=== PATIENT | male | born 1965 | race Caucasian/White ===

== ENCOUNTER 2018-05-23 09:29 | Day surgery (SDC) | payer BC, SELFPAY ==
--- NOTE | 2018-05-22 23:48 | PCM.HP.BLA ---
History and Physical Date of Admission: 05/23/18 HISTORY OF PRESENT ILLNESS 53 year old man presents for evaluation of a melanoma left lateral lower leg near the lateral malleolus that was initially biopsied on 03/14/[address] Lora. Pathology showed melanoma in situ. Further surgery was done on 04/14/[address] Le with excision of the melanoma in situ. Pathology showed a focal invasive component of superficial spreading melanoma with a thickness of 0.2 mm. He was told additional surgery was necessary to minimize recurrence. He also has concerns about a pigmented lesion on his right upper lateral back that has increased in size over the last several months and has developed irregular borders and changes in pigmentation. He presents today for surgical options for treatment. PAST MEDICAL HISTORY Asthma. Diabetes mellitus type 2, noninsulin dependent. Dysmetabolic syndrome X. Hypercholesterolemia. Hyponatremia. Obesity. Hypertension. PAST SURGICAL HISTORY Recent biopsy of left lower lateral leg showing superficial spreading melanoma with a thickness of 0.2 mm. ALLERGIES influenza virus vacc trivalent, split [From Fluzone] MEDICATIONS albuterol 90 mcg/actuation aerosol inhaler mcg INHALATION .PRN 05/08/18 [History Confirmed 05/08/18] aspirin 81 mg tablet,delayed release 81 mg PO QDAY 05/08/18 [History Confirmed 05/08/18] cetirizine 10 mg tablet 10 mg PO QDAY 05/08/18 [History Confirmed 05/08/18] empagliflozin 10 mg tablet 10 mg PO QDAY 05/08/18 [History Confirmed 05/08/18] glipizide ER 10 mg tablet, extended release 24 hr 20 mg PO QDAY tab 05/08/18 [History Confirmed 05/08/18] lisinopril 10 mg tablet 10 mg PO QDAY 05/08/18 [History Confirmed 05/08/18] lovastatin 40 mg tablet 40 mg PO QHS tab 05/08/18 [History Confirmed 05/08/18] metformin ER 500 mg tablet,extended release 24 hr 1,000 mg PO QDAY tab 05/08/18 [History Confirmed 05/08/18] pseudoephedrine 60 mg tablet 60 mg PO BID tab 05/08/18 [History Confirmed 05/08/18] zafirlukast 20 mg tablet 20 mg PO .QID tab 05/08/18 [History Confirmed 05/08/18] FAMILY HISTORY Father - Diabetes. Negative for skin cancer. SOCIAL HISTORY Smoking Status: Never smoker alcohol intake: current substance use type: does not use REVIEW OF SYSTEMS General - Denies fever, fatigue, and weight loss. Eyes - Denies cataracts and glaucoma. ENT - Denies nasal congestion and sore throat. Endocrine - Denies excessive thirst and urination. Skin - Has recent diagnosis of superficial spreading melanoma left lateral lower leg with a thickness of 0.2 mm. He also has an enlarging pigmented lesion right upper lateral back. Musculoskeletal - Denies joint pain, joint stiffness, weakness of muscles and joints, back pain, and arthritis. Neuro - Denies headaches. Cardiovascular - Denies chest pain, fatigue, and shortness of breath with exertion. Psych - Denies anxiety and depression. Respiratory - Denies chronic cough and shortness of breath. Has some asthma. Gastrointestinal - Denies nausea, vomiting, diarrhea, and constipation. Hematologic - Denies abnormal bruising and bleeding. Genitourinary - Denies hematuria and urinary frequency. PHYSICAL EXAM General - Alert and Oriented HEENT - PERRL. EOMI. Throat is clear. No suspicious lesions noted. Neck - Supple and nontender. No cervical adenopathy. No suspicious lesions noted. Lungs - Clear to auscultation. Heart - Regular rate and rhythm. Abdomen - Soft and nondistended. No suspicious lesions noted. Extremities - FROM. No axillary adenopathy. No inguinal adenopathy. Radial pulses are palpable. Dorsalis pedis pulses are palpable. On the left lateral lower leg near the lateral malleolus is a vertical incision from previous excision of melanoma in situ. The incisional scar measures 6 cm. It is healing satisfactory at present. No ulceration. Healing incision is nontender. Neuro - CN II-XII grossly intact. Back - On the right upper lateral back is a pigmented lesion with changes in pigmentation at the edges. Has irregular borders. No ulceration. Lesion is nontender. Measures 6 mm. Psych - Normal mood and affect. ASSESSMENT 1. 6 cm superficial spreading melanoma scar left lateral lower leg near lateral malleolus, with a thickness of 0.2 mm. 2. 6 mm pigmented lesion right upper lateral back. PLAN Discussed the treatment options for melanoma. With a thickness of 0.2 mm it is considered a thin melanoma and requires a surgical margin of 1 cm. If the thickness of the melanoma was between 1 and 4 mm thick, it is considered an intermediate thickness melanoma. It requires a 2 cm margin down to the level of the muscular fascia. It is the intermediate thickness melanomas that require evaluation of the lymph nodes with a sentinel node biopsy. The sentinel node biopsy and possible lymph node resection would need to be done at a tertiary center. If the thickness of the melanoma is greater than 4 mm thick, it is considered a thick melanoma. Margin is 2-3 cm and the excision extends down to the level of the muscular fascia. After treatment, followup is every 3-6 months for a cancer skin check. He can coordinate with his PCP on a yearly basis for LFT's which include LDH and fractionated alkaline phosphatase and a yearly CXR. For this patient, the margin is 0.2 mm which makes it a thin melanoma, and I recommend wide excision of his superficial spreading melanoma left lateral lower leg near the lateral malleolus with a 1 cm margin down to the muscular fascia. Reconstruction will be with skin grafting. Will also excise the pigmented lesion right upper lateral back at the same time and send the lesion to Pathology for analysis to rule out carcinoma. If carcinoma is present, then further excision will be done with skin flap or possible skin graft reconstruction. Patient was informed of the risks and complications of the procedure including alternatives to surgery. These were discussed with the patient personally. Patient voices understanding and wishes to proceed. Some of the risks and complications were included in a form from the [employer]. Will schedule in the next 1-2 weeks. Surgery will be done under general anesthesia on an outpatient basis. Postop he will keep his left leg elevated when sitting to minimize swelling and maximize healing of the skin graft. Also ambulation is ok with a compression MARLIN wrap to minimize swelling. I don't want him standing which can increase the swelling and lead to healing problems with the skin graft. If some compromise of the skin graft develops because of its location on the lower extremities close to the ankle, can be evaluated at the [facility] for HBO treatments to help salvage the healing of the skin graft compromise.
[2018-05-23] VITALS (7 sets, daily range): BP systolic 127–140; BP diastolic 79–95; PULSE 70–87; RESP 16–18; TEMP 36.4–36.6; O2SAT 94–96; BMI 32.8
--- NOTE | 2018-05-23 | LES_PTH ---
PATIENT: MADELINE HERRERA [place] [facility] [place][id number] AGE/SX: 53/M ROOM: RE05/23/[address]: Dr. Zan Weller MD : [id number] BED: DIS: 05/23/2018 SPEC #: [id number] RECD: 05/23/18 14:21 STATUS: ARTIS JAY #: [id number] BRINDA: 05/23/18 00:[address]: Zan Weller DEPT: SURGICAL PATHOLOGY RECD BY: Alvaro Qureshi ENTERED: 05/23/18 14:22 SP TYPE: Lesion OTHR DR: Dr. Sawyer Lora MD Tissues: A - Skin of leg, NOS B - Skin of back, NOS Procedures: Surgery Specimen Level IV HEADER OPERATION: Wide excision melanoma, left lateral leg by ankle PRE-OP DIAGNOSIS: 6 cm superficial spreading melanoma scar left lateral lower leg near lateral malleolus; 6 mm pigmented lesion right upper lateral back TISSUE SUBMITTED: A ? Melanoma left lateral leg ? suture at 12 o?clock, B ? Pigmented lesion right upper lateral back ? suture at 12 o?clock MICROSCOPIC DIAGNOSIS A. Melanoma left lateral leg, wide excision: Negative for residual melanoma. Focal ulceration, acute and chronic inflammation, foreign body giant cell reaction and dermal fibrosis consistent with previous biopsy site. B. Pigmented lesion right upper lateral back, excisional biopsy: Consistent with lentigo. Negative for malignancy. JOVON:mamadou 05/24/18 COMMENT Case has been reviewed in consultation with Dr. Thomas who concurs with the above diagnosis. IDC:AM MICROSCOPIC DESCRIPTION Slides are reviewed. GROSS DESCRIPTION A - Received in fixative is one container labeled with the patient's name and designated left lateral leg, suture at 12 o'clock melanoma. The specimen consists of an ellipse of pink-martin skin measuring 6.5 x 1.6 cm and a depth of excision measuring 1.3 cm. A well-healed scar is present on the cutaneous surface measuring 4.4 cm in greatest dimension. One ellipse of the excision contains a suture and has been designated 12 o?clock. The 12 o?clock tip is inked in black ink. The 6 o?clock tip is inked in green ink. The 3 o?clock position is inked in blue ink and the 9 o?clock position is inked in orange ink. The deep surface is inked in red ink. Serial sections do not reveal mass lesions. The specimen is totally submitted in seven cassettes. B - Received in fixative is one container labeled with the patient's name and designated pigmented lesion right upper back, suture at 12 o'clock. The specimen consists of an ellipse of light martin excised skin with attached yellow fatty tissue measuring 2 x 0.5 cm and a depth of excision measuring 1 cm. The 12 o?clock tip is inked in black ink. The 6 o?clock tip is inked in green ink. The 3 o?clock position is inked in red ink and the 9 o?clock position is inked in orange ink. The cutaneous surface displays a flat, pigmented lesion measuring 0.3 cm in greatest dimension. The specimen is serially sectioned and totally submitted in one cassette. / AM:mamadou 05/23/18 TC:5 CPT: 69798 x2
[2018-05-23 10:36] LABS: Bedside Glucose 148 mg/dL (70-110)
[2018-05-23] MEDS: Cefazolin 2 GM in 0.9% Normal Saline 100 ML IV (11:28)
[2018-05-23] MEDS: Mupirocin Ointment 22gm Tube 1 APPLIC (12:15)
--- NOTE | 2018-05-23 13:07 | PCM.IMDPSTOP ---
Immediate Post-Op Note Date of Procedure: 05/23/18 Primary Surgeon/Physician: Zan Weller senior talent acquisition specialist: Gregg Mccarthy. Pre-Operative Diagnosis: 1. 6 cm superficial spreading melanoma scar left lateral lower leg near lateral malleolus, with a thickness of 0.2 mm. 2. 6 mm pigmented lesion right upper lateral back. Post-Operative Diagnosis: Same. Surgery/Procedure Performed:: 1. Wide excision 6 cm superficial spreading melanoma scar left lower lateral leg near lateral malleolus, (thickness of 0.2 mm), with STSG reconstruction from the left flank (31.5 cm2) and placement of OZZIE NPWT. 2. Excision 6 mm pigmented lesion right upper lateral back with 2.5 cm layered closure. Description of Surgical Findings:: 53 year old man presents for evaluation of a melanoma left lateral lower leg near the lateral malleolus that was initially biopsied on 03/14/[address] Lora. Pathology showed melanoma in situ. Further surgery was done on 04/14/[address] Le with excision of the melanoma in situ. Pathology showed a focal invasive component of superficial spreading melanoma with a thickness of 0.2 mm. He was told additional surgery was necessary to minimize recurrence. He also has concerns about a pigmented lesion on his right upper lateral back that has increased in size over the last several months and has developed irregular borders and changes in pigmentation. Today the patient underwent wide excision 6 cm superficial spreading melanoma scar left lower lateral leg near lateral malleolus, (thickness of 0.2 mm), with STSG reconstruction from the left flank (31.5 cm2) and placement of OZZIE NPWT and excision 6 mm pigmented lesion right upper lateral back with 2.5 cm layered closure. Size of skin graft left lower lateral leg - 9 x 3.5 cm. Estimated Blood Loss: 20 ml. Specimen's removed: 1. Superficial spreading melanoma scar (0.2 mm thick) left lower lateral leg to Pathology. 2. Pigmented lesion right upper lateral back to Pathology. Drains: None. Type of Anesthesia:: General - Admit VTE Documentation VTE Present on Admission: No VTE Mechan Device Prophylaxis: SCD's VTE Pharm Prophylaxis ordered?: No
--- NOTE | 2018-05-23 13:19 | PCM.DC ---
You will use the following diet at home:: Calorie/Carbohydrate Controlled (specify 1200, 1400, etc) Discharge Activity: May Not Drive, May Shower - in 2 days. Wear plastic bag over left leg when showering. May shower in (days): 2 - place plastic bag over left leg dressing when showering. May resume sexual activity in: No Restrictions Weight Bearing Status: Weight bearing as tolerated Keep extremity elevated above heart level: Left Leg Call your doctor if your incision/area has: Continuous Slow Oozing, Sudden Increased Bleeding, Increased Pain/ Swelling, Increased Redness, Foul Smelling Discharge, Swelling at the incision site Call your doctor if you observe: Fever of 101 or Higher, Coldness, Increased Pain, Shortness of breath, Chest pain, Calf discomfort, Uncontrolled pain Suture Line Care: - - antibiotic ointment to left flank and right back incisions daily after dressing removed in two days. Cleanse incision/area with: - - may get incisions (left flank and right back) wet in the shower in two days. place plastic bag over left leg dressing when showering. Allergies/Adverse Reactions: Allergies influenza virus vacc trivalent, split [From Fluzone] Allergy (Verified 05/22/18 11:57) ALLERGY FLUZONE *VACCINES* Medications to take at Discharge albuterol 90 mcg/actuation aerosol inhaler 90 mcg INHALATION .PRN 05/08/18 aspirin 81 mg tablet,delayed release 81 mg PO QDAY 05/08/18 cetirizine 10 mg tablet 10 mg PO QDAY 05/08/18 empagliflozin 10 mg tablet 10 mg PO QDAY 05/08/18 glipizide ER 10 mg tablet, extended release 24 hr 20 mg PO QDAY tab 05/08/18 lisinopril 10 mg tablet 10 mg PO QDAY 05/08/18 lovastatin 40 mg tablet 40 mg PO QHS tab 05/08/18 metformin ER 500 mg tablet,extended release 24 hr 1,000 mg PO QDAY tab 05/08/18 pseudoephedrine 60 mg tablet 60 mg PO BID tab 05/08/18 zafirlukast 20 mg tablet 20 mg PO .QID tab 05/08/18 Cefadroxil [Duricef] 500 mg PO BID #20 cap 05/23/18 Oxycodone HCl/Acetaminophen [Percocet 5/325] 1 - 2 tab PO 4X/DAY PRN PRN 4 Days #30 tab 05/23/18 The following prescriptions were given: Oxycodone HCl/Acetaminophen [Percocet 5/325] 1 - 2 tab PO 4X/DAY PRN PRN 4 Days #30 tab PRN Reason: Pain Cefadroxil [Duricef] 500 mg PO BID #20 cap Primary Care Physician: Sawyer Lora MD [Primary Care Provider] - Test Results: Test results from this visit will be discussed in further detail at your follow-up appointment, if applicable. Please Follow Up With: Zan Weller MD When: one week. call [phone] for appt. Proposed Discharge Date: 05/23/18
[2018-05-23 13:25] LABS: Bedside Glucose 106 mg/dL (70-110)
--- NOTE | 2018-05-23 13:25 | DCINST_ITS ---
You will use the following diet at home:: Calorie/Carbohydrate Controlled ( specify 1200, 1400, etc) Discharge Activity: May Not Drive, May Shower - in 2 days. Wear plastic bag over left leg when showering. May shower in (days): 2 - place plastic bag over left leg dressing when showering. May resume sexual activity in: No Restrictions Weight Bearing Status: Weight bearing as tolerated Keep extremity elevated above heart level: Left Leg Call your doctor if your incision/area has: Continuous Slow Oozing, Sudden Increased Bleeding, Increased Pain/ Swelling, Increased Redness, Foul Smelling Discharge, Swelling at the incision site Call your doctor if you observe: Fever of 101 or Higher, Coldness, Increased Pain, Shortness of breath, Chest pain, Calf discomfort, Uncontrolled pain Suture Line Care: - - antibiotic ointment to left flank and right back incisions daily after dressing removed in two days. Cleanse incision/area with: - - may get incisions (left flank and right back) wet in the shower in two days. place plastic bag over left leg dressing when showering. Allergies/Adverse Reactions: Allergies influenza virus vacc trivalent, split [From Fluzone] Allergy (Verified 05/22/18 11:57) ALLERGY FLUZONE *VACCINES* Medications to take at Discharge albuterol 90 mcg/actuation aerosol inhaler 90 mcg INHALATION .PRN 05/08/18 aspirin 81 mg tablet,delayed release 81 mg PO QDAY 05/08/18 cetirizine 10 mg tablet 10 mg PO QDAY 05/08/18 empagliflozin 10 mg tablet 10 mg PO QDAY 05/08/18 glipizide ER 10 mg tablet, extended release 24 hr 20 mg PO QDAY tab 05/08/18 lisinopril 10 mg tablet 10 mg PO QDAY 05/08/18 lovastatin 40 mg tablet 40 mg PO QHS tab 05/08/18 metformin ER 500 mg tablet,extended release 24 hr 1,000 mg PO QDAY tab pseudoephedrine 60 mg tablet 60 mg PO BID tab 05/08/18 zafirlukast 20 mg tablet 20 mg PO .QID tab 05/08/18 Cefadroxil [Duricef] 500 mg PO BID #20 cap 05/23/18 Oxycodone HCl/Acetaminophen [Percocet 5/325] 1 - 2 tab PO 4X/DAY PRN PRN 4 Days #30 tab 05/23/18 The following prescriptions were given: Oxycodone HCl/Acetaminophen [Percocet 5/325] 1 - 2 tab PO 4X/DAY PRN PRN 4 Days #30 tab PRN Reason: Pain Cefadroxil [Duricef] 500 mg PO BID #20 cap Primary Care Physician: Sawyer Lora MD [Primary Care Provider] - Test Results: Test results from this visit will be discussed in further detail at your follow- up appointment, if applicable. Please Follow Up With: Zan Weller MD When: one week. call [phone] for appt. Proposed Discharge Date: 05/23/18
--- NOTE | 2018-05-24 17:53 | OP.PCM_ITS ---
Report of Operation Date of Procedure: 05/23/18 Pre-Operative Diagnosis: 1. 6 cm superficial spreading melanoma scar left lateral lower leg near lateral malleolus, with a thickness of 0.2 mm. 2. 6 mm pigmented lesion right upper lateral back. Post-Operative Diagnosis: Same. Surgery/Procedure Performed:: 1. Wide excision 6 cm superficial spreading melanoma scar left lower lateral leg near lateral malleolus, (thickness of 0.2 mm), with STSG reconstruction from the left flank (31.5 cm2). 2. Excision 6 mm pigmented lesion right upper lateral back with 2.5 cm layered closure. Description of Surgical Findings:: 53 year old man presents for evaluation of a melanoma left lateral lower leg near the lateral malleolus that was initially biopsied on 03/14/[address] Lora. Pathology showed melanoma in situ. Further surgery was done on 04/14/[address] Le with excision of the melanoma in situ. Pathology showed a focal invasive component of superficial spreading melanoma with a thickness of 0.2 mm. He was told additional surgery was necessary to minimize recurrence. He also has concerns about a pigmented lesion on his right upper lateral back that has increased in size over the last several months and has developed irregular borders and changes in pigmentation. Patient was informed of the risks and complications of the procedure including alternatives to surgery. These were discussed with the patient personally. Patient voices understanding and wishes to proceed. Some of the risks and complications were included in a form from the [employer]. Size of skin graft left lower lateral leg - 9 x 3.5 cm. wellness program coordinator: Gregg Mccarthy. Type of Anesthesia:: General Specimen's removed: 1. Superficial spreading melanoma scar (0.2 mm thick) left lower lateral leg to Pathology. 2. Pigmented lesion right upper lateral back to Pathology. Drains: None. Estimated Blood Loss (mL): 20 ml. Description of Procedure: Patient was taken to OR in supine position and was placed under general anesthesia. He was then placed in the lateral position. His left flank, left leg, and right upper back were prepped and draped in the usual fashion. SCD's were placed for DVT prophylaxis. Using xylocaine with epinephrine, the lesions right upper lateral back and left lower lateral leg and donor area left flank were infiltrated. After waiting 5 minutes for the anesthetic to take effect, I excised the pigmented lesion right upper lateral back in an oblique elliptical excision down into the subcutaneous tissue. The lesion was excised with a 1 mm margin in all directions thus making it an 8 mm excision and a 2.5 cm layered closure. A suture was placed at 12 oclock position for pathology orientation and sent to Pathology for analysis to rule out carcinoma. Hemostasis was obtained with electrocautery. The wound was then closed in multiple layers with 4-0 Monocryl interrupted sutures for the deep dermis and subcutaneous tissue. The skin was approximated with 4-0 Prolene simple interrupted sutures. Bactroban ointment was applied to the incision followed by an Op-site dressing. A wide excision was done to the melanoma left lower lateral leg with a 1 cm margin in all directions because it was a thin melanoma with a thickness of 0.2 mm. The excision went down to the muscular fascia. A suture was placed at 12 oclock position and sent to Pathology for analysis to rule out carcinoma at the margins. The melanoma scar was excised with a 1 cm margin in all directions thus making it an 8 cm excision. The size of the wound for skin grafting was 9 x 3.5 cm or 31.5 cm2. I then made an elliptical excision in the left flank down into the subcutaneous tissue. The subcutaneous tissue was removed from the undersurface of the dermis and some of the deeper dermis thus making it a thick split thickness skin graft. The skin graft was placed on stretch and meshed with a 15 blade. The split thickness skin graft was then placed on the melanoma defect left lower lateral leg and secured to the skin edge with surgical clips. 3-0 Chromic sutures were placed for central quilting stabilization. Mepitel nonadherent dressing was placed on the graft followed by Bactroban ointment and placement of a OZZIE NPWT device. Good suction was noted with the device. A compression MARLIN wrap was then applied. For the donor site closure, some extra subcutaneous tissue was excised to aid in wound closure. Hemostasis was obtained with electrocautery. The underlying Ina's fascia was approximated with 3-0 Monocryl figure of eight interrupted sutures. The deep dermis and subcutaneous tissue was approximated with 3-0 Monocryl interrupted sutures. The skin was approximated with 3-0 V-lock unidirectional barbed running subcuticular suture. Histoacryl skin tissue adhesive was then applied to the incision. A Kerlix gauze dressing was applied. Patient tolerated the procedure well and was sent to PACU in satisfactory condition. He will be sent home on antibiotics and pain medication. He will keep his left leg elevated during the initial postop period. He will followup in the office in a week for a wound check and takedown of the skin graft dressing and for discussion of the pathology report and to remove some sutures. Grafts/Implants Used: None. - Complications None. - Admit VTE Documentation VTE Present on Admission: No VTE Mechan Device Prophylaxis: SCD's VTE Pharm Prophylaxis ordered?: No Code Visit Surgery Charges CPT - 73293 ICD-10 - C43.72 63469 C43.72 42711 D49.2, Z85.820 71616 D49.2, Z85.820
== END 2018-05-23 14:52 | disposition home or self-care (01) ==
LOC: SDC 09:31 → AC 09:33
PROVIDERS: Family Provider Orthopaedic Surgery; PCP Orthopaedic Surgery; Visit Provider Surgery
PROC: (CPT 11401; principal; 2018-05-23 11:05)
DX: C43.72 Malignant melanoma of left lower limb, including hip (principal); E11.9 Type 2 diabetes mellitus without complications; J45.909 Unspecified asthma, uncomplicated; E78.00 Pure hypercholesterolemia, unspecified; I10 Essential (primary) hypertension; D49.2 Neoplasm of unspecified behavior of bone, soft tissue, and skin; E66.9 Obesity, unspecified; Z68.32 Body mass index [BMI] 32.0-32.9, adult; Z71.3 Dietary counseling and surveillance; E88.81 Metabolic syndrome and other insulin resistance; Z79.899 Other long term (current) drug therapy; Z79.84 Long term (current) use of oral hypoglycemic drugs; Z79.82 Long term (current) use of aspirin
CPT/HCPCS: 00300; 11401; 11606; 12031; 15002; 15100; 82962; 88305; J7120; J2405

== ENCOUNTER → 2018-06-15 18:37 | Outpatient (CLI) | payer BC, SELFPAY | PROVIDERS: Family Provider Orthopaedic Surgery; PCP Family Medicine; Visit Provider Surgery | DX: T86.828 Other complications of skin graft (allograft) (autograft) (principal); C43.72 Malignant melanoma of left lower limb, including hip; Z85.820 Personal history of malignant melanoma of skin | CPT/HCPCS: 87070; 87075; 87076; 87077; 87186; 87205 ==

== ENCOUNTER 2019-06-12 06:54 | Day surgery (SDC) | payer BC, SELFPAY ==
[2019-05-31 13:37] VITALS: BMI 40.8
[2019-06-12] VITALS (7 sets, daily range): BP systolic 118–141; BP diastolic 69–89; PULSE 78–89; RESP 16–18; TEMP 36.1–36.3; O2SAT 95–98; BMI 35.0
--- NOTE | 2019-06-12 | IMM_PTH ---
PATIENT: MADELINE HERRERA LOC: [facility] [place] U#:[id number] AGE/SX: 54/M ROOM: RE06/12/[address]: Dr. Zan Weller MD : 1965 BED: DIS: 06/12/2019 SPEC #: [id number] RECD: 06/15/19 13:12 STATUS: DEJONAngela REYnes #: [id number] BRINDA: 06/12/19 00:[address]: Zan Weller DEPT: IMMUNOHISTOCHEMISTRY RECD BY: Karen Gracia ENTERED: 06/15/19 13:13 SP TYPE: IMMUNO OTHR DR: Dr. Sawyer Lora MD Tissues: A - Skin of abdomen, NOS B - Skin of abdomen, NOS Procedures: MELAN-A (initial) S-100 (add) PHYSICIAN & INSTITUTION [place] [address] SPECIMEN INFORMATION: Tissue Source: A - Pigmented lesion, right upper abdominal wall, medial, B - Pigmented lesion, left upper abdominal wall, lateral Clinical Info: Pigmented lesions of abdominal wall Specimen Number: [id number] A & B CPT code: 41262 x2, 21642 x2 METHODOLOGY: Deparaffinized sections of prefer/formalin-fixed tissue or PAP/DQ stained slides are incubated with monoclonal/polyclonal antibodies/oligonucleotide probes. Localization is made via biotin free immunoperoxidase method. Appropriate controls are performed and reacted as expected. Results on target cell population are indicated in the following table: RESULTS: ANTIBODY / CLONE RESULT Block A S-100 (4C4.9) positive Melan A (A103) positive Block B S-100 (4C4.9) negative Melan A (A103) negative These tests were developed and their performance characteristics determined by [facility]. They may not have been cleared or approved by the U.S. Food and Drug Administration. The FDA has determined that such clearance or approval is not necessary. INTERPRETATION: A. Pigmented lesion, right upper medial abdominal wall, biopsy: Consistent with intradermal nevus. B. Pigmented lesion, left upper lateral abdominal wall, biopsy: Consistent with intradermal nevus. AM:mamadou 06/15/19
--- NOTE | 2019-06-12 01:06 | HP.PCM_ITS ---
History and Physical Date of Admission: 06/12/19 HISTORY OF PRESENT ILLNESS 54 year old man presents for evaluation of TBSE. He had a superficial spreading melanoma (thickness 0.2 mm) left lateral lower leg near the lateral malleolus excised and skin grafted in 05/24. He has not had his skin checked since last July. His PCP had recently ordered a chest x-ray and LFT's because of his melanoma history that were ok. He has some concerns about pigmented lesions on his left upper abdominal wall, lateral, and right upper abdominal wall, medial, that have increased in size over the last several months and have developed changes in pigmentation and have developed irregular borders. He denies fever. He denies trauma. He denies recent infection. He denies bleeding. PAST MEDICAL HISTORY Asthma Diabetes mellitus type 2, noninsulin dependent Dysmetabolic syndrome X Hypercholesterolemia Hyponatremia Obesity Melanoma left lateral lower leg near lateral malleolus Hypertension PAST SURGICAL HISTORY melanoma surgery ALLERGIES influenza virus vacc trivalent MEDICATIONS aspirin cetirizine glipizide ER lisinopril lovastatin metformin ER pseudoephedrine zafirlukast Albuterol Inhaler [Ventolin Hfa (SP)] Empagliflozin [Jardiance] FAMILY HISTORY Father - Diabetes SOCIAL HISTORY Smoking Status: Never smoker alcohol intake: current substance use type: does not use REVIEW OF SYSTEMS General - Denies fever, fatigue, and weight loss. Eyes - Denies cataracts and glaucoma. ENT - Denies nasal congestion and sore throat. Endocrine - Denies excessive thirst and urination. Skin - Had superficial spreading melanoma (thickness of 0.2 mm) excised left lateral lower leg near the lateral malleolus in 05/24. Has enlarging pigmented lesions left upper abdominal wall, lateral, and right upper abdominal wall, medial. Musculoskeletal - Denies joint pain, joint stiffness, weakness of muscles and joints, back pain, and arthritis. Neuro - Denies headaches. Cardiovascular - Denies chest pain, fatigue, and shortness of breath with exertion. Psych - Denies anxiety and depression. Respiratory - Denies chronic cough and shortness of breath. Has some asthma. Gastrointestinal - Denies nausea, vomiting, diarrhea, and constipation. Hematologic - Denies abnormal bruising and bleeding. Genitourinary - Denies hematuria and urinary frequency. PHYSICAL EXAMINATION General - Alert and Oriented HEENT - PERRL. EOMI. Throat is clear. No suspicious lesions noted. Neck - Supple and nontender. No cervical adenopathy. No suspicious lesions noted. Lungs - Clear to auscultation. Heart - Regular rate and rhythm. Abdomen - Soft and nondistended. Has a 0.8 cm pigmented lesion left upper abdominal wall, lateral, and a 0.5 cm pigmented lesion right upper abdominal wall, medial, that have changes in pigmentation. Have irregular borders. Lesions are flat. No ulceration. Lesions are nontender. Extremities - FROM. No axillary adenopathy. No inguinal adenopathy. Radial pulses are palpable. Dorsalis pedis pulses are palpable. On the left lateral lower leg near the lateral malleolus is a healed skin graft after excision superficial spreading melanoma (thickness 0.2 mm). No other suspicious lesions noted. Neuro - CN II-XII grossly intact. Back - No suspicious lesions noted. Psych - Normal mood and affect. ASSESSMENT 1. 0.8 cm pigmented lesion left upper abdominal wall, lateral. 2. 0.5 cm pigmented lesion right upper abdominal wall, medial. 3. Personal history of melanoma. PLAN Recommend excision of these changing and enlarging pigmented lesions left upper abdominal wall, lateral, and right upper abdominal wall, medial. Should be able to initially close with a primary layered closure. Will send the lesions to Pathology for analysis to rule out carcinoma. If carcinoma is present then further excision would be necessary with probable skin flap or skin graft reconstruction. Surgery will be done on an outpatient basis under local anesthesia and IV sedation. Patient was informed of the risks and complications of the procedure including alternatives to surgery. These were discussed with the patient personally. Patient voices understanding and wishes to proceed. Some of the risks and complications were included in a form from the [place] [employer].
[2019-06-12 07:51] LABS: Bedside Glucose 174 mg/dL (70-110)
--- NOTE | 2019-06-12 08:35 | LES_PTH ---
PATIENT: MADELINE HERRERA LOC: [facility] [place] U#:[id number] AGE/SX: 54/M ROOM: RE06/12/[address]: Dr. Zan Weller MD : 1965 BED: DIS: 06/12/2019 SPEC #: [id number] RECD: 06/12/19 11:11 STATUS: ARTIS JAY #: [id number] BRINDA: 06/12/19 08:[address]: Zan Weller DEPT: SURGICAL PATHOLOGY RECD BY: Shashank Michaels ENTERED: 06/12/19 12:19 SP TYPE: Lesion OTHR DR: Dr. Sawyer Lora MD Tissues: A - Skin of abdomen, NOS B - Skin of abdomen, NOS Procedures: Surgery Specimen Level IV HEADER OPERATION: Excision pigmented lesions, left upper abdominal wall PRE-OP DIAGNOSIS: 0.8 cm pigmented lesion, left upper abdominal wall, lateral; 0.5 cm pigmented lesion, right upper abdominal wall, medial; history of melanoma TISSUE SUBMITTED: A - Pigmented lesion, right upper abdominal wall, medial, suture at 12 o'clock, B - Pigmented lesion, left upper abdominal wall, lateral, suture at 12 o'clock MICROSCOPIC DIAGNOSIS A. Skin lesion, right medial abdominal wall, biopsy: Consistent with intradermal nevus. See comment. B. Skin lesion left lateral abdominal wall, biopsy: Consistent with intradermal nevus. See comment. AM:mamadou 06/15/19 COMMENT A & B. Immunohistochemistry ([id number]) supports the above diagnosis. MICROSCOPIC DESCRIPTION Slides are reviewed. GROSS DESCRIPTION A - Received in fixative is one container labeled with the patient's name and designated pigmented lesion, right upper abdominal wall, medial, suture at 12 o'clock. The specimen consists of a piece of martin-white skin ellipse measuring 1 x 0.3 cm and up to 0.8 cm in thickness. There is a brown lesion on the surface measuring 0.2 cm in greatest dimension. The specimen is inked as follows: 12 o'clock - black and 6 o'clock - blue. The entire specimen is submitted in one cassette. It will be sectioned at the time of embedding. B - Received in fixative is one container labeled with the patient's name and designated pigmented lesion, left upper abdominal wall, lateral, suture at 12 o'clock. The specimen consists of a piece of martin-white skin ellipse measuring 1.5 x 0.5 cm and up to 0.6 cm in thickness. There is a martin-brown lesion on the surface measuring 0.4 cm in greatest dimension. The specimen is inked as follows: 12 o'clock - black and 6 o'clock - blue. The entire specimen is submitted in one cassette. It will be sectioned at the time of embedding. / SJ:rg 06/12/19 TC: 5 CPT: 41686 x2
[2019-06-12] MEDS: Cefazolin 2 GM in 0.9% Normal Saline 100 ML IV (08:45)
[2019-06-12] MEDS: Mupirocin Ointment 22gm Tube 1 APPLIC (09:24)
--- NOTE | 2019-06-12 09:31 | OP.PCM_ITS ---
Report of Operation Date of Procedure: 06/12/19 Pre-Operative Diagnosis: 1. 0.8 cm pigmented lesion left upper abdominal wall, lateral. 2. 0.5 cm pigmented lesion right upper abdominal wall, medial. 3. Personal history of melanoma. Post-Operative Diagnosis: Same. Surgery/Procedure Performed:: 1. Excision 0.8 cm pigmented lesion left upper abdominal wall, lateral, with 3 cm layered closure. 2. Excision 0.5 cm pigmented lesion right upper abdominal wall, medial, with 2 cm layered closure. Description of Surgical Findings:: 54 year old man presents for evaluation of TBSE. He had a superficial spreading melanoma (thickness 0.2 mm) left lateral lower leg near the lateral malleolus excised and skin grafted in 05/24. He has not had his skin checked since last July. His PCP had recently ordered a chest x-ray and LFT's because of his melanoma history that were ok. He has some concerns about pigmented lesions on his left upper abdominal wall, lateral, and right upper abdominal wall, medial, that have increased in size over the last several months and have developed changes in pigmentation and have developed irregular borders. He denies fever. He denies trauma. He denies recent infection. He denies bleeding. Patient was informed of the risks and complications of the procedure including alternatives to surgery. These were discussed with the patient personally. Patient voices understanding and wishes to proceed. Some of the risks and complications were included in a form from the [employer] [place] [employer]. 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 Specimen's removed: 1. Pigmented lesion left upper abdominal wall, lateral, to Pathology. 2. Pigmented lesion right upper abdominal wall, medial, to Pathology. Drains: None. Estimated Blood Loss (mL): 10 ml. Description of Procedure: Patient was taken to OR in supine position and was given IV sedation. The abdominal wall was prepped and draped in the usual fashion. SCD's were placed for DVT prophylaxis. Perioperative antibiotics were given intravenously. The lesions left upper abdominal wall, lateral, and right upper abdominal wall, medial, were infiltrated with xylocaine and epinephrine. After waiting 5 minutes for the anesthetic to take effect, Both pigmented lesions were excised in a horizontal elliptical fashion down into the subcutaneous tissue. A suture was marked at the 12 oclock position for pathology orientation for both lesions. Both lesions were sent separately to Pathology for analysis to rule out carcinoma. If carcinoma is present, then further excision will be done followed by possible skin flap or skin graft reconstruction. The lesions were excised with a 1 mm margin in all directions thus making the left upper abdominal wall, lateral, lesion a 1 cm excision with a 3 cm layered closure and the right upper abdominal wall, medial, lesion a 0.7 cm excision with a 2 cm layered closure. Hemostasis was obtained with electrocautery. Both lesions were then closed in a layered fashion with 4-0 Monocryl interrupted sutures for the deep dermis and subcutaneous tissue. The skin was approximated with 4-0 Prolene simple interrupted sutures. Antibiotic ointment was applied to both incisions followed by Op Site dressings. Patient tolerated the procedure well and was sent to PACU in satisfactory condition. Patient will be sent home on antibiotics and pain medication. Patient will followup in a week for a wound check and for discussion of the pathology report and for removal of the sutures. Grafts/Implants Used: None. - Complications None. - Admit VTE Documentation VTE Present on Admission: No VTE Mechan Device Prophylaxis: SCD's VTE Pharm Prophylaxis ordered?: No Code Visit Surgery Charges CPT - 18574 ICD-10 - D49.2, Z85.820 73514 D49.2, Z85.820 61647 D49.2, Z85.820
--- NOTE | 2019-06-12 09:39 | DCINST_ITS ---
You will use the following diet at home:: No restrictions Discharge Activity: May not drive while taking narcotic pain medications., May Shower - in two days. May shower in (days): 2 May resume sexual activity in: No Restrictions Weight Bearing Status: Weight bearing as tolerated Call your doctor if your incision/area has: Continuous Slow Oozing, Sudden Increased Bleeding, Increased Pain/ Swelling, Increased Redness, Foul Smelling Discharge, Swelling at the incision site Call your doctor if you observe: Fever of 101 or Higher, Coldness, Increased Pain, Shortness of breath, Chest pain, Calf discomfort, Uncontrolled pain Suture Line Care: - - after dressing removed in two days, apply antibiotic ointment to suture line daily. Remove Dressing in (days):: 2 - apply antibiotic ointment daily followed by bandaid or small gauze dressing. Cleanse incision/area with: - - may get incision wet in the shower in two days. Allergies/Adverse Reactions: Allergies influenza virus vacc trivalent, split [From Fluzone] Allergy (Verified 06/12/19 07:27) ALLERGY FLUZONE *VACCINES* Medications to take at Discharge cetirizine 10 mg tablet 10 mg PO QDAY 05/08/18 glipizide ER 10 mg tablet, extended release 24 hr 20 mg PO QDAY tab 05/08/18 lisinopril 10 mg tablet 10 mg PO QDAY 05/08/18 lovastatin 40 mg tablet 40 mg PO QHS tab 05/08/18 metformin ER 500 mg tablet,extended release 24 hr 1,000 mg PO QDAY tab 05/08/18 pseudoephedrine 60 mg tablet 60 mg PO BID tab 05/08/18 zafirlukast 20 mg tablet 20 mg PO DAILY tab 05/08/18 Albuterol Inhaler [Ventolin Hfa] 1 - 2 puff INHALATION Q4H PRN PRN 06/05/19 Empagliflozin [Jardiance] 25 mg PO DAILY 06/05/19 Cefadroxil [Duricef] 500 mg PO BID #8 cap 06/12/19 Oxycodone HCl/Acetaminophen [Percocet 5/325] 1 tab PO Q6H PRN PRN 3 Days #15 tab 06/12/19 The following prescriptions were given: Cefadroxil [Duricef] 500 mg PO BID #8 cap Prescription Printed Oxycodone HCl/Acetaminophen [Percocet 5/325] 1 tab PO Q6H PRN PRN 3 Days #15 tab PRN Reason: Pain Prescription Printed Primary Care Physician: Sawyer Lora MD [Primary Care Provider] - Test Results: Test results from this visit will be discussed in further detail at your follow- up appointment, if applicable. Please Follow Up With: Zan Weller MD When: one week. call [phone] for appt. Proposed Discharge Date: 06/12/19
== END 2019-06-12 10:20 | disposition home or self-care (01) ==
LOC: SDC 06:57 → AC 06:59
PROVIDERS: Family Provider Orthopaedic Surgery; PCP Orthopaedic Surgery; Referring Provider Surgery; Visit Provider Surgery
PROC: (CPT 11402; principal; 2019-06-12 08:25)
DX: D49.2 Neoplasm of unspecified behavior of bone, soft tissue, and skin (principal); L98.9 Disorder of the skin and subcutaneous tissue, unspecified; Z85.820 Personal history of malignant melanoma of skin; E78.00 Pure hypercholesterolemia, unspecified; E88.81 Metabolic syndrome and other insulin resistance; E11.9 Type 2 diabetes mellitus without complications; Z79.84 Long term (current) use of oral hypoglycemic drugs; Z79.82 Long term (current) use of aspirin; E66.9 Obesity, unspecified; Z68.35 Body mass index [BMI] 35.0-35.9, adult; Z71.3 Dietary counseling and surveillance; J45.909 Unspecified asthma, uncomplicated; I10 Essential (primary) hypertension
CPT/HCPCS: 11402; 12032; 82962; 88305; 88341; 88342; J7120